=== PATIENT | female | born 1990 | race American Indian/Alaskan Native ===

== ENCOUNTER 2017-04-20 17:23 | Inpatient (IN) | payer MEDICAID ==
--- NOTE | 2017-04-20 19:43 | Ultrasound Report ---
FINAL REPORT EXAM: US OB LIMITED HISTORY: YEMI TECHNIQUE: Limited obstetrical ultrasound transabdominal PRIORS: None. FINDINGS: Obstetrical ultrasound performed for amniotic fluid index only Deepest pocket measures 4.12 centimeters. Amniotic fluid index is within normal limits at 9.16 centimeters IMPRESSION: Amniotic fluid index within normal limits at 9.16 centimeters
[2017-04-20] MEDS ORDERED: STADOL IV PRN (20:21)
[2017-04-20] MEDS ORDERED: ePHEDrine SULFATE IV PRN (20:21)
[2017-04-20] MEDS ORDERED: PHENERGAN PO PRN (20:21)
[2017-04-20] MEDS ORDERED: BRETHINE IVP PRN (20:21)
[2017-04-20] MEDS ORDERED: MINERAL OIL PO PRN (20:21)
--- NOTE | 2017-04-20 20:35 | History and Physical Report ---
History of Present Illness Date of examination: 04/20/17 Date of admission: 04/20/17 17:23 History of present illness: Patient seen in [facility] with c/o intermitently leaking fluid. Patient w/o pooling but positive for ferning. Patient is GBS positive US in L&D had YEMI >9. Will admit start abx prophylaxis and induction Menstrual History Regularity: regular Menses every: 28 days Duration: 5 LMP: 07/31/2016 LMP reliability: definite LMP character: normal test type: urine test Date: 12/11/2016 BC at conception: none Planned ? no EDC Calculations LMP: 05/07/2017 EDC Confirmation: 05/07/2017 Past History : 2 Term Births: 0 Premature Births: 0 Living Children: 0 Para: 0 Mult. Births: 0 Prev : 0 Prev. attempt? 0 Aborta: 1 Elect. Ab: 1 Spont. Ab: 0 Ectopics: 0 # 1 Delivery date: 2009 Delivery type: EAB Past Medical History: G E R D Past Surgical History: D&C: (2009) EAB Family History Summary: Other family member - Has No Family History of Ovarvian Cancer - Entered On: 12/11 Other family member - Has No Family History of Colon Cancer - Entered On: 2016 Other family member - Has No Family History of Breast Cancer - Entered On: 2016 Other family member - Has Family History of Diabetes - Entered On: 12/11/2016 Other family member - Has Family History of CVA or Stroke - Entered On: 12/11/2016 Social History: Patient is single Risk Factors: Smoked Tobacco Use: Never smoker Drug use: yes Substance: marijuana Comments: Rarely Alcohol use: yes Drinks per day: social Past Medical History 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 of genital herpes: no Partner hx. of genital herpes: no Genetic History Congenital Heart Defect: Mom: no Dad: no Ondina Disease: Mom: no Dad: no Thalassemia Mom: no Dad: no Neural Tube Defect Mom: no Dad: no Down's Syndrome Mom: no Dad: no Rodger-Sachs Mom: no Dad: no Sickle Cell Disease/Trait Mom: no Dad: no Hemophilia Mom: no Dad: no Muscular Dystrophy Mom: no Dad: no Cystic Fibrosis Mom: no Dad: no Luna Chorea Mom: no Dad: no Mental Retardation Mom: no Dad: no Fragile X Mom: no Dad: no Other Genetic/Chromosomal Disorder Mom: no Dad: no Child w/other defect Mom: no Dad: no Enviromental Exposures Xray Exposure: no Medication, drug, or alcohol use since LMP: no Chemical/Other Exposure: no Exposure to Cat Liter: no Hx of Parvovirus (Fifth Disease): no Current Allergies (reviewed today): No known allergies Past History Past Medical History: other (See HPI) Past Surgical History: other (See HPI) 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) Family/Genetic History: other (See HPI) Social history: other (See HPI) - Obstetrical History Expected Date of Delivery: 05/07/17 Actual Gestation: 37 Week(s) 5 Day(s) : 2 Para: 0 Hx # Term Pregnancies: 0 Number of Pregnancies: 0 Spontaneous Abortions: 0 Induced : 1 Number of Living Children: 0 Medications and Allergies Allergies Allergy/AdvReac Type Severity Reaction Status Date / Time No Known Allergies Allergy Unverified 04/20/17 18:44 Home Medications Medication Instructions Recorded Confirmed Last Taken Type No Known Home Medications [No 04/21/17 04/21/17 Unknown History Reported Home Medications] Active Meds: Active Medications Butorphanol Tartrate (Stadol) 2 mg IV Q2H PRN PRN Reason: Pain , Severe (7-10) Ephedrine Sulfate (Ephedrine Sulfate) 10 mg IV Q2M PRN PRN Reason: Hypotension Ampicillin Sodium (Polycillin/Ns 1 Gm/50 Ml) 1 gm in 50 mls @ 100 mls/hr IV Q4HR TIFFANI PRN Reason: Protocol Lactated Ringer's (Lactated Ringers) 1,000 mls @ 125 mls/hr IV DIRECT TIFFANI Oxytocin/Sodium Chloride (Pitocin/Ns 20 Unit/1000ml Drip) 20 units in 1,000 mls @ 125 mls/hr IV DIRECT TIFFANI Mineral Oil (Mineral Oil) 30 ml PO QHS PRN PRN Reason: Constipation Promethazine HCl (Phenergan) 25 mg PO Q6H PRN PRN Reason: Nausea And Vomiting Terbutaline Sulfate (Brethine) 0.25 mg IVP ONCE PRN PRN Reason: Hyperstimulation/Hypertonicity - Vital Signs Vital signs: Vital Signs Pulse BP Pulse Ox 73 117/73 99 04/20/17 18:05 04/20/17 18:05 04/20/17 18:05 Temp Pulse Resp BP Pulse Ox 98.7 F 68 16 123/78 99 04/20/17 18:15 04/20/17 19:00 04/20/17 18:15 04/20/17 18:35 04/20/17 19:00 - Physical Exam Breasts: Positive: deferred Cardiovascular: Regular rate Lungs: Positive: Normal air movement Abdomen: Positive: normal appearance, soft Vagina: Positive: normal moisture Cervix: Positive: other (per RN). Negative: lesion, discharge Uterus: Positive: enlarged Results Result Diagrams: 04/20/17 21:03 All other labs normal. Assessment and Plan - Patient Problems (1) Premature rupture of membranes Current Visit: Yes Status: Acute Qualifiers: PROM onset of labor timing: unspecified duration between rupture of membranes and onset of labor PROM gestational age: -third trimester Qualified Code(s): O42.913 - premature rupture of membranes, unspecified as to length of time between rupture and onset of labor, third trimester Plan to address problem: Will admit and augment labor per protocol after abx given. Induction with pitocin explained to patient Questions answered. (2) 37 weeks gestation of Current Visit: Yes Status: Acute (3) Group B streptococcal carriage complicating Current Visit: Yes Status: Acute Plan to address problem: Abx prophylaxis
[2017-04-20] MEDS ORDERED: PITOCin/NS 20 UNIT/1000ML DRIP 20 UNITS/1,000 ML BAG IV SCH (21:00)
[2017-04-20 21:30] LABS: Hematocrit 34.3 % (30.3-42.9); Mean Corpuscular HGB Conc 32 % (30-34); Mean Corpuscular Hemoglobin 27 pg (28-32); Mean Corpuscular Volume 84 fl (79-97); Platelet Count 294 K/mm3 (140-440); Red Blood Count 4.08 M/mm3 (3.65-5.03); Red Cell Distribution Width 17.4 % (13.2-15.2); White Blood Count 8.4 K/mm3 (4.5-11.0)
[2017-04-21] MEDS: POLYCILLIN/NS 1 GM/50 ML 1 GM/50 ML BAG IV SCH ×5 (00:30→20:15)
[2017-04-21] MEDS: LACTATED RINGERS 1,000 ML IV SCH ×6 (02:49→23:26)
[2017-04-21] MEDS ORDERED: PITOCin/NS 30 UNIT/500ML 30,000 MILLIUNITS/500 ML BAG IV ONE (06:18)
[2017-04-21] MEDS ORDERED: Fluarix Quad 2017-2018(36 MOS+ IM ONE (12:08)
--- NOTE | 2017-04-21 12:16 | Progress Note ---
<TEJA CLEMONS - Last Filed: 04/21/17 12:12> Assessment and Plan 37+5w, with leaking fluid since 04/16/17, + fern in office. No leaking noted this morning. Plan for pitocin today, if no signs of active labor will d/ c and do cervidil overnight. Dr. Ochoa consulted. Plan of care discussed with patient and s/o, questions addressed. - Patient Problems (1) 37 weeks gestation of Current Visit: Yes Status: Acute (2) Group B streptococcal carriage complicating Current Visit: Yes Status: Acute Plan to address problem: Ampicillin q4h monitor for s/s infection limit SVE (3) Premature rupture of membranes Onset Date: ~04/16/17 Current Visit: Yes Status: Acute QualifierTitle: PROM onset of labor timing: unspecified duration between rupture of membranes and onset of labor PROM gestational age: -third trimester Qualified Code(s): O42.913 - premature rupture of membranes , unspecified as to length of time between rupture and onset of labor, third trimester Subjective - Subjective Date of service: 04/21/17 Principal diagnosis: IUP @ 37+5 , PPROM 04/16 Patient reports: movement normal, no new complaints, no loss of fluid, no vaginal bleeding, no contractions Objective - Vital Signs Vital Signs: Vital Signs - 12hr 04/21/17 04/21/17 04/21/17 00:58 03:54 04:55 Temperature Pulse Rate 67 71 62 Respiratory Rate Blood Pressure 124/71 129/73 129/65 Blood Pressure [Right] 04/21/17 04/21/17 04/21/17 05:15 05:18 05:54 Temperature 98.1 F Pulse Rate 85 85 70 Respiratory 14 Rate Blood Pressure 133/63 106/63 Blood Pressure 133/63 [Right] 04/21/17 04/21/17 07:06 07:11 Temperature 98.3 F Pulse Rate 71 71 Respiratory 18 Rate Blood Pressure 117/67 Blood Pressure 117/67 [Right] - Exam Breasts: normal Cardiovascular: Regular rate Lungs: Clear to auscultation, Normal air movement Abdomen: Present: normal appearance, soft Vulva: both: normal Uterus: Present: normal FHR: auscultation normal, category 2 Uterine Contraction Monitor Mode: External Cervical Dilatation: 1 (Per RN) Uterine Contraction Frequency (min): 2-3 Uterine Contraction Pattern: Regular Uterine Tone Measurement Phase: Contraction Uterine Contraction Intensity: Mild Extremities: normal Deep Tendon Reflex Grade: Normal +2 - Labs Labs: Abnormal Labs 04/20/17 21:03 MCH 27 L RDW 17.4 H Laboratory Results - last 24 hr 04/20/17 04/20/17 21:03 21:03 WBC 8.4 RBC 4.08 Hgb 11.0 Hct 34.3 MCV 84 MCH 27 L MCHC 32 RDW 17.4 H Plt Count 294 Blood Type A POSITIVE Antibody Screen Negative <MENDOZA OCHOA D - Last Filed: 04/21/17 13:13> Assessment and Plan Patient gives a history of ROM for 5days, no s/s infection. Serial induction explained, plan of care discussed, questions encouraged and answered, she voiced understanding and agrees with plan of care Objective - Vital Signs Vital Signs: Vital Signs - 12hr 04/21/17 04/21/17 04/21/17 03:54 04:55 05:15 Temperature 98.1 F Pulse Rate 71 62 85 Respiratory 14 Rate Blood Pressure 129/73 129/65 Blood Pressure 133/63 [Right] 04/21/17 04/21/17 04/21/17 05:18 05:54 07:06 Temperature 98.3 F Pulse Rate 85 70 71 Respiratory 18 Rate Blood Pressure 133/63 106/63 Blood Pressure 117/67 [Right] 04/21/17 07:11 Temperature Pulse Rate 71 Respiratory Rate Blood Pressure 117/67 Blood Pressure [Right] - Labs Labs: Abnormal Labs 04/20/17 21:03 MCH 27 L RDW 17.4 H Laboratory Results - last 24 hr 04/20/17 04/20/17 21:03 21:03 WBC 8.4 RBC 4.08 Hgb 11.0 Hct 34.3 MCV 84 MCH 27 L MCHC 32 RDW 17.4 H Plt Count 294 Blood Type A POSITIVE Antibody Screen Negative
[2017-04-21] MEDS ORDERED: NARCAN 2 MG/2 ML IV PRN (19:51)
--- NOTE | 2017-04-21 19:53 | Anesthesia Consultation ---
Anesthesia Consult and Med Hx Date of service: 04/21/17 - Airway Anesthetic Teeth Evaluation: Good ROM Head & Neck: Adequate Mental/Hyoid Distance: Adequate Mallampati Class: Class II Intubation Access Assessment: Probably Good - Pulmonary Exam CTA: Yes - Cardiac Exam Cardiac Exam: RRR - Pre-Operative Health Status ASA Pre-Surgery Classification: ASA2 Proposed Anesthetic Plan: Epidural, Spinal - Pulmonary Hx Asthma: No COPD: No Hx Pneumonia: No - Cardiovascular System Hx Hypertension: No - Central Nervous System Hx Seizures: No Hx Psychiatric Problems: No - Endocrine Hx Renal Disease: No Hx End Stage Renal Disease: No Hx Hypothyroidism: No Hx Hyperthyroidism: No - Hematic Hx Anemia: No Hx Sickle Cell Disease: No - Other Systems Hx Alcohol Use: No Hx Obesity: Yes - Additional Comments Anesthesia Medical History Comments: IUP
[2017-04-21] MEDS: fentaNYL-BUPIV 2 MCG/ML-0.125% 200 MCG/100 ML BAG EPIDURAL SCH (20:05)
[2017-04-21] MEDS: PITOCin/NS 30 UNIT/500ML 30 UNITS/500 ML BAG IV SCH (21:16)
--- NOTE | 2017-04-21 21:20 | Progress Note ---
Assessment and Plan Patient began hurting with ctx and made cervical change, decision made to continue with pitocin induction. She is comfortable with an epidural. Clear/ bloody fluid now noted from vagina. tracing reviewed cat 2 with minimal variability and subtle decels on tracing that appear to be lates. IUPC placed without difficulty and tracing well. Plan to continue titrating pitocin for adequate labor. MVUs currently around 200. Will continue to monitor closely and keep Dr. Ochoa updated. - Patient Problems (1) 37 weeks gestation of Current Visit: Yes Status: Acute (2) Group B streptococcal carriage complicating Current Visit: Yes Status: Acute Plan to address problem: Next dose of amp 0000 (3) Premature rupture of membranes Onset Date: ~04/16/17 Current Visit: Yes Status: Acute Qualifiers: PROM onset of labor timing: unspecified duration between rupture of membranes and onset of labor PROM gestational age: -third trimester Qualified Code(s): O42.913 - premature rupture of membranes, unspecified as to length of time between rupture and onset of labor, third trimester Subjective - Subjective Date of service: 04/21/17 Principal diagnosis: IUP @ 37+5 , PPROM 04/16 Patient reports: new complaints (Comfortable with epidural), movement normal, no loss of fluid, no vaginal bleeding, no contractions Objective - Vital Signs Vital Signs: Vital Signs - 12hr 04/21/17 04/21/17 04/21/17 15:05 15:10 16:10 Temperature 98.9 F Pulse Rate 68 68 68 Respiratory 18 Rate Blood Pressure 135/72 Blood Pressure 135/72 [Right] O2 Sat by Pulse 94 Oximetry 04/21/17 04/21/17 04/21/17 16:11 16:15 16:18 Temperature Pulse Rate 70 66 68 Respiratory Rate Blood Pressure Blood Pressure [Right] O2 Sat by Pulse 94 95 94 Oximetry 04/21/17 04/21/17 04/21/17 16:20 16:25 16:32 Temperature Pulse Rate 70 69 Respiratory Rate Blood Pressure Blood Pressure [Right] O2 Sat by Pulse 97 96 97 Oximetry 04/21/17 04/21/17 04/21/17 16:33 16:35 16:37 Temperature Pulse Rate 63 76 73 Respiratory Rate Blood Pressure 120/77 Blood Pressure [Right] O2 Sat by Pulse 91 95 Oximetry 12/04/21/17 04/21/17 16:42 16:47 16:52 Temperature Pulse Rate 67 68 62 Respiratory Rate Blood Pressure Blood Pressure [Right] O2 Sat by Pulse 97 96 97 Oximetry 04/21/17 04/21/17 04/21/17 16:54 16:55 16:57 Temperature Pulse Rate 65 61 73 Respiratory Rate Blood Pressure 116/57 Blood Pressure [Right] O2 Sat by Pulse 93 91 Oximetry 04/21/17 04/21/17 04/21/17 17:02 17:07 17:12 Temperature Pulse Rate 67 63 65 Respiratory Rate Blood Pressure Blood Pressure [Right] O2 Sat by Pulse 91 92 95 Oximetry 04/21/17 04/21/17 04/21/17 17:13 17:17 17:19 Temperature Pulse Rate 71 78 73 Respiratory Rate Blood Pressure Blood Pressure [Right] O2 Sat by Pulse 94 99 93 Oximetry 04/21/17 04/21/17 04/21/17 17:22 17:25 17:27 Temperature Pulse Rate 69 67 62 Respiratory Rate Blood Pressure Blood Pressure [Right] O2 Sat by Pulse 99 94 92 Oximetry 04/21/17 04/21/17 04/21/17 17:31 17:32 17:37 Temperature Pulse Rate 78 75 64 Respiratory Rate Blood Pressure Blood Pressure [Right] O2 Sat by Pulse 94 93 91 Oximetry 04/21/17 04/21/17 04/21/17 17:42 17:47 17:52 Temperature Pulse Rate 63 65 69 Respiratory Rate Blood Pressure Blood Pressure [Right] O2 Sat by Pulse 93 89 90 Oximetry 04/21/17 04/21/17 04/21/17 17:54 17:58 18:03 Temperature Pulse Rate 78 64 Respiratory Rate Blood Pressure Blood Pressure [Right] O2 Sat by Pulse 93 99 96 Oximetry 04/21/17 04/21/17 04/21/17 18:08 18:13 18:18 Temperature Pulse Rate 68 70 69 Respiratory Rate Blood Pressure Blood Pressure [Right] O2 Sat by Pulse 98 97 97 Oximetry 04/21/17 04/21/17 04/21/17 18:23 18:28 18:33 Temperature Pulse Rate 71 75 73 Respiratory Rate Blood Pressure Blood Pressure [Right] O2 Sat by Pulse 98 97 99 Oximetry 04/21/17 04/21/17 04/21/17 18:38 18:43 18:48 Temperature Pulse Rate 73 69 68 Respiratory Rate Blood Pressure Blood Pressure [Right] O2 Sat by Pulse 98 98 98 Oximetry 04/21/17 04/21/17 04/21/17 18:53 18:54 18:58 Temperature Pulse Rate 82 83 73 Respiratory Rate Blood Pressure 134/86 Blood Pressure [Right] O2 Sat by Pulse 99 98 Oximetry 04/21/17 04/21/17 04/21/17 19:03 19:08 19:13 Temperature Pulse Rate 88 85 61 Respiratory Rate Blood Pressure Blood Pressure [Right] O2 Sat by Pulse 99 98 99 Oximetry 04/21/17 04/21/17 04/21/17 19:18 19:21 19:23 Temperature Pulse Rate 70 76 79 Respiratory Rate Blood Pressure 132/85 Blood Pressure [Right] O2 Sat by Pulse 99 98 Oximetry 04/21/17 04/21/17 04/21/17 19:25 19:27 19:28 Temperature Pulse Rate 76 73 71 Respiratory Rate Blood Pressure 121/74 125/82 Blood Pressure [Right] O2 Sat by Pulse 96 Oximetry 04/21/17 04/21/17 04/21/17 19:29 19:31 19:33 Temperature Pulse Rate 76 86 Respiratory Rate Blood Pressure 122/83 126/83 129/73 Blood Pressure [Right] O2 Sat by Pulse 98 Oximetry 04/21/17 04/21/17 04/21/17 19:35 19:37 19:38 Temperature Pulse Rate 77 75 65 Respiratory Rate Blood Pressure 118/68 121/63 Blood Pressure [Right] O2 Sat by Pulse 99 Oximetry 04/21/17 04/21/17 04/21/17 19:39 19:41 19:43 Temperature Pulse Rate 72 79 72 Respiratory Rate Blood Pressure 128/72 123/72 127/77 Blood Pressure [Right] O2 Sat by Pulse 98 Oximetry 04/21/17 04/21/17 04/21/17 19:45 19:47 19:48 Temperature Pulse Rate 81 73 74 Respiratory Rate Blood Pressure 113/68 119/68 Blood Pressure [Right] O2 Sat by Pulse 98 Oximetry 04/21/17 04/21/17 04/21/17 19:49 19:51 19:53 Temperature Pulse Rate 72 63 78 Respiratory Rate Blood Pressure 120/69 129/71 123/70 Blood Pressure [Right] O2 Sat by Pulse 98 Oximetry 04/21/17 04/21/17 04/21/17 19:55 19:57 19:58 Temperature Pulse Rate 83 81 70 Respiratory Rate Blood Pressure 117/68 109/67 Blood Pressure [Right] O2 Sat by Pulse 98 Oximetry 04/21/17 04/21/17 04/21/17 19:59 20:01 20:03 Temperature Pulse Rate 70 77 65 Respiratory Rate Blood Pressure 117/68 122/70 131/76 Blood Pressure [Right] O2 Sat by Pulse 99 Oximetry 04/21/17 04/21/17 04/21/17 20:04 20:05 20:07 Temperature 98.1 F Pulse Rate 62 61 67 Respiratory 18 Rate Blood Pressure 125/74 118/60 Blood Pressure 118/60 [Right] O2 Sat by Pulse 97 Oximetry 04/21/17 04/21/17 04/21/17 20:08 20:09 20:11 Temperature Pulse Rate 71 65 71 Respiratory Rate Blood Pressure 120/63 120/68 Blood Pressure [Right] O2 Sat by Pulse 98 Oximetry 04/21/17 04/21/17 04/21/17 20:13 20:15 20:17 Temperature Pulse Rate 68 71 73 Respiratory Rate Blood Pressure 124/70 130/76 132/75 Blood Pressure [Right] O2 Sat by Pulse 98 Oximetry 04/21/17 04/21/17 04/21/17 20:18 20:23 20:28 Temperature Pulse Rate 67 65 66 Respiratory Rate Blood Pressure Blood Pressure [Right] O2 Sat by Pulse 99 99 99 Oximetry 04/21/17 04/21/17 04/21/17 20:33 20:38 20:43 Temperature Pulse Rate 69 63 66 Respiratory Rate Blood Pressure 120/67 Blood Pressure [Right] O2 Sat by Pulse 99 98 99 Oximetry 04/21/17 04/21/17 04/21/17 20:48 20:53 20:58 Temperature Pulse Rate 61 68 66 Respiratory Rate Blood Pressure 126/69 Blood Pressure [Right] O2 Sat by Pulse 99 98 98 Oximetry 04/21/17 04/21/17 04/21/17 21:03 21:08 21:11 Temperature Pulse Rate 70 72 74 Respiratory Rate Blood Pressure 109/64 Blood Pressure [Right] O2 Sat by Pulse 99 97 94 Oximetry 04/21/17 21:13 Temperature Pulse Rate 69 Respiratory Rate Blood Pressure Blood Pressure [Right] O2 Sat by Pulse 97 Oximetry - Exam Breasts: normal Cardiovascular: Regular rate Lungs: Clear to auscultation, Normal air movement Abdomen: Present: normal appearance, soft Vulva: both: normal Uterus: Present: normal FHR: category 2 Uterine Contraction Monitor Mode: Internal Cervical Dilatation: 4 Cervical Effacement Percentage: 70 station: -1 Uterine Contraction Frequency (min): 2-3 Uterine Contraction Duration: 60-80 Uterine Contraction Pattern: Regular Uterine Tone Measurement Phase: Contraction Uterine Contraction Intensity: Moderate Extremities: normal Deep Tendon Reflex Grade: Normal +2 - Labs Labs: Abnormal Labs 04/20/17 21:03 MCH 27 L RDW 17.4 H Laboratory Results - last 24 hr 04/20/17 04/20/17 04/20/17 21:03 21:03 21:03 WBC 8.4 RBC 4.08 Hgb 11.0 Hct 34.3 MCV 84 MCH 27 L MCHC 32 RDW 17.4 H Plt Count 294 RPR Nonreactive Blood Type A POSITIVE Antibody Screen Negative
[2017-04-22] MEDS: POLYCILLIN/NS 1 GM/50 ML 1 GM/50 ML BAG IV SCH (00:26)
[2017-04-22] MEDS: PITOCin/NS 30 UNIT/500ML 30 UNITS/500 ML BAG IV SCH (00:37)
[2017-04-22] MEDS: fentaNYL-BUPIV 2 MCG/ML-0.125% 200 MCG/100 ML BAG EPIDURAL SCH (03:13)
--- NOTE | 2017-04-22 05:27 | Progress Note ---
<TEJA CLEMONS - Last Filed: 04/22/17 05:24> Assessment and Plan patient making very slow change throughout the night but she desired to continue with IOL, now fht with prolonged decels and tachycardia with minimal variability. Dr. Ochoa consulted and decision made to proceed with operative delivery. Plan of care discussed with patient, all questions addressed. - Patient Problems (1) 37 weeks gestation of Current Visit: Yes Status: Acute (2) Group B streptococcal carriage complicating Current Visit: Yes Status: Acute (3) Premature rupture of membranes Onset Date: ~04/16/17 Current Visit: Yes Status: Acute QualifierTitle: PROM onset of labor timing: unspecified duration between rupture of membranes and onset of labor PROM gestational age: -third trimester Qualified Code(s): O42.913 - premature rupture of membranes , unspecified as to length of time between rupture and onset of labor, third trimester Subjective - Subjective Date of service: 04/22/17 Principal diagnosis: IUP @ 37+6 , PPROM 04/16 Patient reports: new complaints (Comfortable with epidural), no loss of fluid, no vaginal bleeding, no contractions Objective - Vital Signs Vital Signs: Vital Signs - 12hr 04/21/17 04/21/17 04/21/17 17:27 17:31 17:32 Temperature Pulse Rate 62 78 75 Respiratory Rate Blood Pressure Blood Pressure [Right] O2 Sat by Pulse 92 94 93 Oximetry 04/21/17 04/21/17 04/21/17 17:37 17:42 17:47 Temperature Pulse Rate 64 63 65 Respiratory Rate Blood Pressure Blood Pressure [Right] O2 Sat by Pulse 91 93 89 Oximetry 04/21/17 04/21/17 04/21/17 17:52 17:54 17:58 Temperature Pulse Rate 69 78 Respiratory Rate Blood Pressure Blood Pressure [Right] O2 Sat by Pulse 90 93 99 Oximetry 04/21/17 04/21/17 04/21/17 18:03 18:08 18:13 Temperature Pulse Rate 64 68 70 Respiratory Rate Blood Pressure Blood Pressure [Right] O2 Sat by Pulse 96 98 97 Oximetry 04/21/17 04/21/17 04/21/17 18:18 18:23 18:28 Temperature Pulse Rate 69 71 75 Respiratory Rate Blood Pressure Blood Pressure [Right] O2 Sat by Pulse 97 98 97 Oximetry 04/21/17 04/21/17 04/21/17 18:33 18:38 18:43 Temperature Pulse Rate 73 73 69 Respiratory Rate Blood Pressure Blood Pressure [Right] O2 Sat by Pulse 99 98 98 Oximetry 04/21/17 04/21/17 04/21/17 18:48 18:53 18:54 Temperature Pulse Rate 68 82 83 Respiratory Rate Blood Pressure 134/86 Blood Pressure [Right] O2 Sat by Pulse 98 99 Oximetry 04/21/17 04/21/17 04/21/17 18:58 19:03 19:08 Temperature Pulse Rate 73 88 85 Respiratory Rate Blood Pressure Blood Pressure [Right] O2 Sat by Pulse 98 99 98 Oximetry 04/21/17 04/21/17 04/21/17 19:13 19:18 19:21 Temperature Pulse Rate 61 70 76 Respiratory Rate Blood Pressure 132/85 Blood Pressure [Right] O2 Sat by Pulse 99 99 Oximetry 04/21/17 04/21/17 04/21/17 19:23 19:25 19:27 Temperature Pulse Rate 79 76 73 Respiratory Rate Blood Pressure 121/74 125/82 Blood Pressure [Right] O2 Sat by Pulse 98 Oximetry 04/21/17 04/21/17 04/21/17 19:28 19:29 19:31 Temperature Pulse Rate 71 76 Respiratory Rate Blood Pressure 122/83 126/83 Blood Pressure [Right] O2 Sat by Pulse 96 Oximetry 04/21/17 04/21/17 04/21/17 19:33 19:35 19:37 Temperature Pulse Rate 86 77 75 Respiratory Rate Blood Pressure 129/73 118/68 121/63 Blood Pressure [Right] O2 Sat by Pulse 98 Oximetry 04/21/17 04/21/17 04/21/17 19:38 19:39 19:41 Temperature Pulse Rate 65 72 79 Respiratory Rate Blood Pressure 128/72 123/72 Blood Pressure [Right] O2 Sat by Pulse 99 Oximetry 04/21/17 04/21/17 04/21/17 19:43 19:45 19:47 Temperature Pulse Rate 72 81 73 Respiratory Rate Blood Pressure 127/77 113/68 119/68 Blood Pressure [Right] O2 Sat by Pulse 98 Oximetry 04/21/17 04/21/17 04/21/17 19:48 19:49 19:51 Temperature Pulse Rate 74 72 63 Respiratory Rate Blood Pressure 120/69 129/71 Blood Pressure [Right] O2 Sat by Pulse 98 Oximetry 04/21/17 04/21/17 04/21/17 19:53 19:55 19:57 Temperature Pulse Rate 78 83 81 Respiratory Rate Blood Pressure 123/70 117/68 109/67 Blood Pressure [Right] O2 Sat by Pulse 98 Oximetry 04/21/17 04/21/17 04/21/17 19:58 19:59 20:01 Temperature Pulse Rate 70 70 77 Respiratory Rate Blood Pressure 117/68 122/70 Blood Pressure [Right] O2 Sat by Pulse 98 Oximetry 04/21/17 04/21/17 04/21/17 20:03 20:04 20:05 Temperature 98.1 F Pulse Rate 65 62 61 Respiratory 18 Rate Blood Pressure 131/76 125/74 Blood Pressure 118/60 [Right] O2 Sat by Pulse 99 97 Oximetry 04/21/17 04/21/17 04/21/17 20:07 20:08 20:09 Temperature Pulse Rate 67 71 65 Respiratory Rate Blood Pressure 118/60 120/63 Blood Pressure [Right] O2 Sat by Pulse 98 Oximetry 04/21/17 04/21/17 04/21/17 20:11 20:13 20:15 Temperature Pulse Rate 71 68 71 Respiratory Rate Blood Pressure 120/68 124/70 130/76 Blood Pressure [Right] O2 Sat by Pulse 98 Oximetry 04/21/17 04/21/17 04/21/17 20:17 20:18 20:23 Temperature Pulse Rate 73 67 65 Respiratory Rate Blood Pressure 132/75 Blood Pressure [Right] O2 Sat by Pulse 99 99 Oximetry 04/21/17 04/21/17 04/21/17 20:28 20:33 20:38 Temperature Pulse Rate 66 69 63 Respiratory Rate Blood Pressure 120/67 Blood Pressure [Right] O2 Sat by Pulse 99 99 98 Oximetry 04/21/17 04/21/17 04/21/17 20:43 20:48 20:53 Temperature Pulse Rate 66 61 68 Respiratory Rate Blood Pressure 126/69 Blood Pressure [Right] O2 Sat by Pulse 99 99 98 Oximetry 04/21/17 04/21/17 04/21/17 20:58 21:03 21:08 Temperature Pulse Rate 66 70 72 Respiratory Rate Blood Pressure 109/64 Blood Pressure [Right] O2 Sat by Pulse 98 99 97 Oximetry 04/21/17 04/21/17 04/21/17 21:11 21:13 21:18 Temperature Pulse Rate 74 69 67 Respiratory Rate Blood Pressure 122/71 Blood Pressure [Right] O2 Sat by Pulse 94 97 98 Oximetry 04/21/17 04/21/17 04/21/17 21:23 21:28 21:33 Temperature Pulse Rate 63 64 64 Respiratory Rate Blood Pressure Blood Pressure [Right] O2 Sat by Pulse 97 97 97 Oximetry 04/21/17 04/21/17 04/21/17 21:35 21:38 21:43 Temperature Pulse Rate 66 65 64 Respiratory Rate Blood Pressure 121/62 Blood Pressure [Right] O2 Sat by Pulse 96 97 Oximetry 04/21/17 04/21/17 04/21/17 21:48 21:50 21:53 Temperature Pulse Rate 66 66 67 Respiratory Rate Blood Pressure 118/71 Blood Pressure [Right] O2 Sat by Pulse 97 97 Oximetry 04/21/17 04/21/17 04/21/17 21:58 22:03 22:04 Temperature Pulse Rate 70 68 68 Respiratory Rate Blood Pressure 129/72 Blood Pressure [Right] O2 Sat by Pulse 96 96 Oximetry 04/21/17 04/21/17 04/21/17 22:08 22:10 22:13 Temperature Pulse Rate 66 77 65 Respiratory Rate Blood Pressure Blood Pressure [Right] O2 Sat by Pulse 96 94 96 Oximetry 04/21/17 04/21/17 04/21/17 22:18 22:23 22:28 Temperature Pulse Rate 66 64 72 Respiratory Rate Blood Pressure 123/64 Blood Pressure [Right] O2 Sat by Pulse 97 96 95 Oximetry 04/21/17 04/21/17 04/21/17 22:33 22:35 22:36 Temperature Pulse Rate 67 80 66 Respiratory Rate Blood Pressure 184/73 124/60 Blood Pressure [Right] O2 Sat by Pulse 96 Oximetry 04/21/17 04/21/17 04/21/17 22:38 22:43 22:48 Temperature Pulse Rate 74 58 L 53 L Respiratory Rate Blood Pressure 107/55 Blood Pressure [Right] O2 Sat by Pulse 98 99 99 Oximetry 04/21/17 04/21/17 04/21/17 22:53 22:58 23:03 Temperature Pulse Rate 55 L 53 L 57 L Respiratory Rate Blood Pressure Blood Pressure [Right] O2 Sat by Pulse 99 99 99 Oximetry 04/21/17 04/21/1704/21/17 23:04 23:08 23:13 Temperature Pulse Rate 52 L 54 L 55 L Respiratory Rate Blood Pressure 111/59 Blood Pressure [Right] O2 Sat by Pulse 99 99 Oximetry 04/21/17 04/21/17 04/21/17 23:18 23:23 23:28 Temperature Pulse Rate 64 61 56 L Respiratory Rate Blood Pressure 114/60 Blood Pressure [Right] O2 Sat by Pulse 99 100 100 Oximetry 04/21/17 04/21/17 04/21/17 23:33 23:38 23:43 Temperature Pulse Rate 52 L 51 L 52 L Respiratory Rate Blood Pressure 115/61 Blood Pressure [Right] O2 Sat by Pulse 99 99 99 Oximetry 04/21/17 04/21/17 04/21/17 23:48 23:53 23:58 Temperature Pulse Rate 68 61 62 Respiratory Rate Blood Pressure 115/69 Blood Pressure [Right] O2 Sat by Pulse 100 100 99 Oximetry 04/22/17 04/22/17 04/22/17 00:03 00:05 00:08 Temperature Pulse Rate 59 L 59 L 55 L Respiratory Rate Blood Pressure 138/84 Blood Pressure [Right] O2 Sat by Pulse 100 100 Oximetry 04/22/17 04/22/17 04/22/17 00:13 00:18 00:23 Temperature Pulse Rate 57 L 57 L 55 L Respiratory Rate Blood Pressure 128/80 Blood Pressure [Right] O2 Sat by Pulse 100 100 99 Oximetry 04/22/17 04/22/17 04/22/17 00:28 00:33 00:35 Temperature Pulse Rate 57 L 53 L 54 L Respiratory Rate Blood Pressure 135/78 Blood Pressure [Right] O2 Sat by Pulse 100 100 Oximetry 04/22/17 04/22/17 04/22/17 00:38 00:39 00:43 Temperature 97.2 F L Pulse Rate 53 L 57 L Respiratory Rate Blood Pressure Blood Pressure [Right] O2 Sat by Pulse 99 99 Oximetry 04/22/17 04/22/17 04/22/17 00:48 00:49 00:53 Temperature Pulse Rate 56 L 56 L 57 L Respiratory Rate Blood Pressure 138/81 Blood Pressure [Right] O2 Sat by Pulse 99 99 Oximetry 04/22/17 04/22/17 04/22/17 00:58 01:03 01:08 Temperature Pulse Rate 71 63 64 Respiratory Rate Blood Pressure 141/90 Blood Pressure [Right] O2 Sat by Pulse 100 99 98 Oximetry 04/22/17 04/22/17 04/22/17 01:13 01:18 01:19 Temperature Pulse Rate 57 L 59 L 53 L Respiratory Rate Blood Pressure 125/76 Blood Pressure [Right] O2 Sat by Pulse 99 99 Oximetry 04/22/17 04/22/17 04/22/17 01:23 01:28 01:33 Temperature Pulse Rate 57 L 61 63 Respiratory Rate Blood Pressure Blood Pressure [Right] O2 Sat by Pulse 99 99 99 Oximetry 04/22/17 04/22/17 04/22/17 01:35 01:38 01:43 Temperature Pulse Rate 78 67 52 L Respiratory Rate Blood Pressure 132/73 Blood Pressure [Right] O2 Sat by Pulse 99 100 Oximetry 04/22/17 04/22/17 04/22/17 01:48 01:50 01:53 Temperature Pulse Rate 52 L 48 L 59 L Respiratory Rate Blood Pressure 114/57 Blood Pressure [Right] O2 Sat by Pulse 99 99 Oximetry 04/22/17 04/22/17 04/22/17 01:55 01:58 02:03 Temperature 97.6 F Pulse Rate 59 L 59 L Respiratory 20 Rate Blood Pressure Blood Pressure [Right] O2 Sat by Pulse 100 100 Oximetry 04/22/17 04/22/17 04/22/17 02:05 02:08 02:13 Temperature Pulse Rate 52 L 54 L 77 Respiratory Rate Blood Pressure 107/62 Blood Pressure [Right] O2 Sat by Pulse 100 99 Oximetry 04/22/17 04/22/17 04/22/17 02:18 02:19 02:23 Temperature Pulse Rate 63 57 L 58 L Respiratory Rate Blood Pressure 131/83 Blood Pressure [Right] O2 Sat by Pulse 100 99 Oximetry 04/22/17 04/22/17 04/22/17 02:28 02:33 02:34 Temperature Pulse Rate 54 L 57 L 57 L Respiratory Rate Blood Pressure 131/84 Blood Pressure [Right] O2 Sat by Pulse 100 100 Oximetry 04/22/17 04/22/17 04/22/17 02:38 02:43 02:48 Temperature Pulse Rate 55 L 56 L 58 L Respiratory Rate Blood Pressure Blood Pressure [Right] O2 Sat by Pulse 100 100 100 Oximetry 04/22/17 04/22/17 04/22/17 02:50 02:53 02:58 Temperature Pulse Rate 54 L 55 L 53 L Respiratory Rate Blood Pressure 152/86 Blood Pressure [Right] O2 Sat by Pulse 100 100 Oximetry 04/22/17 04/22/17 04/22/17 03:03 03:04 03:08 Temperature Pulse Rate 54 L 51 L 56 L Respiratory Rate Blood Pressure 135/79 Blood Pressure [Right] O2 Sat by Pulse 100 99 Oximetry 04/22/17 04/22/17 04/22/17 03:13 03:18 03:19 Temperature Pulse Rate 56 L 59 L 62 Respiratory Rate Blood Pressure 152/91 Blood Pressure [Right] O2 Sat by Pulse 100 100 Oximetry 04/22/17 04/22/17 04/22/17 03:21 03:23 03:28 Temperature Pulse Rate 61 55 L 57 L Respiratory Rate Blood Pressure 130/79 Blood Pressure [Right] O2 Sat by Pulse 99 99 Oximetry 04/22/17 04/22/17 04/22/17 03:29 03:33 03:38 Temperature 98.5 F Pulse Rate 62 50 L Respiratory 18 Rate Blood Pressure 134/82 Blood Pressure [Right] O2 Sat by Pulse 98 98 Oximetry 04/22/17 04/22/17 04/22/17 03:43 03:46 03:52 Temperature Pulse Rate 56 L 65 61 Respiratory Rate Blood Pressure 135/75 Blood Pressure [Right] O2 Sat by Pulse 97 93 98 Oximetry 04/22/17 04/22/17 04/22/17 03:57 04:02 04:07 Temperature Pulse Rate 74 60 75 Respiratory Rate Blood Pressure Blood Pressure [Right] O2 Sat by Pulse 98 98 98 Oximetry 04/22/17 04/22/17 04/22/17 04:08 04:12 04:17 Temperature Pulse Rate 68 71 71 Respiratory Rate Blood Pressure 130/83 Blood Pressure [Right] O2 Sat by Pulse 98 98 Oximetry 04/22/17 04/22/17 04/22/17 04:22 04:23 04:27 Temperature Pulse Rate 76 60 72 Respiratory Rate Blood Pressure 136/88 Blood Pressure [Right] O2 Sat by Pulse 99 100 Oximetry 04/22/17 04/22/17 04/22/17 04:32 04:37 04:42 Temperature Pulse Rate 66 72 71 Respiratory Rate Blood Pressure 125/75 Blood Pressure [Right] O2 Sat by Pulse 100 100 100 Oximetry 04/22/17 04/22/17 04/22/17 04:47 04:52 04:57 Temperature Pulse Rate 73 65 71 Respiratory Rate Blood Pressure 134/79 Blood Pressure [Right] O2 Sat by Pulse 99 99 98 Oximetry 04/22/17 04/22/17 04/22/17 05:02 05:07 05:16 Temperature Pulse Rate 79 77 70 Respiratory Rate Blood Pressure 128/76 Blood Pressure [Right] O2 Sat by Pulse 97 96 100 Oximetry 04/22/17 04/22/17 04/22/17 05:21 05:22 05:26 Temperature Pulse Rate 68 69 74 Respiratory Rate Blood Pressure 105/63 Blood Pressure [Right] O2 Sat by Pulse 100 99 Oximetry - Exam Breasts: normal Cardiovascular: Regular rate Lungs: Clear to auscultation, Normal air movement Abdomen: Present: normal appearance Vulva: both: normal Uterus: Present: normal FHR: category 2 Uterine Contraction Monitor Mode: Internal Cervical Dilatation: 6 Cervical Effacement Percentage: 90 station: -1 Uterine Contraction Pattern: Regular Uterine Tone Measurement Phase: Contraction Uterine Contraction Intensity: Strong/Firm Extremities: normal - Labs Labs: Abnormal Labs 04/20/17 21:03 MCH 27 L RDW 17.4 H Laboratory Results - last 24 hr 04/20/17 21:03 RPR Nonreactive <MENDOZA OCHOA D - Last Filed: 04/22/17 06:06> Assessment and Plan . Had minimal change yesterday however declined c/s, requesting continuing KEITH with pitocin. Overall reassuring and the decision was made to continue KEITH. Now with no cervical change she desires to proceed with c/s. Risks for continue KEITH vs c/s explained, questions answered she voiced understanding and desires to proceed with c/s Objective - Vital Signs Vital Signs: Vital Signs - 12hr 04/21/17 04/21/17 04/21/17 18:03 18:08 18:13 Temperature Pulse Rate 64 68 70 Respiratory Rate Blood Pressure Blood Pressure [Right] O2 Sat by Pulse 96 98 97 Oximetry 04/21/17 04/21/17 04/21/17 18:18 18:23 18:28 Temperature Pulse Rate 69 71 75 Respiratory Rate Blood Pressure Blood Pressure [Right] O2 Sat by Pulse 97 98 97 Oximetry 04/21/17 04/21/17 04/21/17 18:33 18:38 18:43 Temperature Pulse Rate 73 73 69 Respiratory Rate Blood Pressure Blood Pressure [Right] O2 Sat by Pulse 99 98 98 Oximetry 04/21/17 04/21/17 04/21/17 18:48 18:53 18:54 Temperature Pulse Rate 68 82 83 Respiratory Rate Blood Pressure 134/86 Blood Pressure [Right] O2 Sat by Pulse 98 99 Oximetry 04/21/17 04/21/17 04/21/17 18:58 19:03 19:08 Temperature Pulse Rate 73 88 85 Respiratory Rate Blood Pressure Blood Pressure [Right] O2 Sat by Pulse 98 99 98 Oximetry 04/21/17 04/21/17 04/21/17 19:13 19:18 19:21 Temperature Pulse Rate 61 70 76 Respiratory Rate Blood Pressure 132/85 Blood Pressure [Right] O2 Sat by Pulse 99 99 Oximetry 04/21/17 04/21/17 04/21/17 19:23 19:25 19:27 Temperature Pulse Rate 79 76 73 Respiratory Rate Blood Pressure 121/74 125/82 Blood Pressure [Right] O2 Sat by Pulse 98 Oximetry 04/21/17 04/21/17 04/21/17 19:28 19:29 19:31 Temperature Pulse Rate 71 76 Respiratory Rate Blood Pressure 122/83 126/83 Blood Pressure [Right] O2 Sat by Pulse 96 Oximetry 04/21/17 04/21/17 04/21/17 19:33 19:35 19:37 Temperature Pulse Rate 86 77 75 Respiratory Rate Blood Pressure 129/73 118/68 121/63 Blood Pressure [Right] O2 Sat by Pulse 98 Oximetry 04/21/17 04/21/17 04/21/17 19:38 19:39 19:41 Temperature Pulse Rate 65 72 79 Respiratory Rate Blood Pressure 128/72 123/72 Blood Pressure [Right] O2 Sat by Pulse 99 Oximetry 04/21/17 04/21/17 04/21/17 19:43 19:45 19:47 Temperature Pulse Rate 72 81 73 Respiratory Rate Blood Pressure 127/77 113/68 119/68 Blood Pressure [Right] O2 Sat by Pulse 98 Oximetry 04/21/17 04/21/17 04/21/17 19:48 19:49 19:51 Temperature Pulse Rate 74 72 63 Respiratory Rate Blood Pressure 120/69 129/71 Blood Pressure [Right] O2 Sat by Pulse 98 Oximetry 04/21/17 04/21/17 04/21/17 19:53 19:55 19:57 Temperature Pulse Rate 78 83 81 Respiratory Rate Blood Pressure 123/70 117/68 109/67 Blood Pressure [Right] O2 Sat by Pulse 98 Oximetry 04/21/17 04/21/17 04/21/17 19:58 19:59 20:01 Temperature Pulse Rate 70 70 77 Respiratory Rate Blood Pressure 117/68 122/70 Blood Pressure [Right] O2 Sat by Pulse 98 Oximetry 04/21/17 04/21/17 04/21/17 20:03 20:04 20:05 Temperature 98.1 F Pulse Rate 65 62 61 Respiratory 18 Rate Blood Pressure 131/76 125/74 Blood Pressure 118/60 [Right] O2 Sat by Pulse 99 97 Oximetry 04/21/17 04/21/17 04/21/17 20:07 20:08 20:09 Temperature Pulse Rate 67 71 65 Respiratory Rate Blood Pressure 118/60 120/63 Blood Pressure [Right] O2 Sat by Pulse 98 Oximetry 04/21/17 04/21/17 04/21/17 20:11 20:13 20:15 Temperature Pulse Rate 71 68 71 Respiratory Rate Blood Pressure 120/68 124/70 130/76 Blood Pressure [Right] O2 Sat by Pulse 98 Oximetry 04/21/17 04/21/17 04/21/17 20:17 20:18 20:23 Temperature Pulse Rate 73 67 65 Respiratory Rate Blood Pressure 132/75 Blood Pressure [Right] O2 Sat by Pulse 99 99 Oximetry 04/21/17 04/21/17 04/21/17 20:28 20:33 20:38 Temperature Pulse Rate 66 69 63 Respiratory Rate Blood Pressure 120/67 Blood Pressure [Right] O2 Sat by Pulse 99 99 98 Oximetry 04/21/17 04/21/17 04/21/17 20:43 20:48 20:53 Temperature Pulse Rate 66 61 68 Respiratory Rate Blood Pressure 126/69 Blood Pressure [Right] O2 Sat by Pulse 99 99 98 Oximetry 04/21/17 04/21/17 04/21/17 20:58 21:03 21:08 Temperature Pulse Rate 66 70 72 Respiratory Rate Blood Pressure 109/64 Blood Pressure [Right] O2 Sat by Pulse 98 99 97 Oximetry 04/21/17 04/21/17 04/21/17 21:11 21:13 21:18 Temperature Pulse Rate 74 69 67 Respiratory Rate Blood Pressure 122/71 Blood Pressure [Right] O2 Sat by Pulse 94 97 98 Oximetry 04/21/17 04/21/17 04/21/17 21:23 21:28 21:33 Temperature Pulse Rate 63 64 64 Respiratory Rate Blood Pressure Blood Pressure [Right] O2 Sat by Pulse 97 97 97 Oximetry 04/21/17 04/21/17 04/21/17 21:35 21:38 21:43 Temperature Pulse Rate 66 65 64 Respiratory Rate Blood Pressure 121/62 Blood Pressure [Right] O2 Sat by Pulse 96 97 Oximetry 04/21/17 04/21/17 04/21/17 21:48 21:50 21:53 Temperature Pulse Rate 66 66 67 Respiratory Rate Blood Pressure 118/71 Blood Pressure [Right] O2 Sat by Pulse 97 97 Oximetry 04/21/17 04/21/17 04/21/17 21:58 22:03 22:04 Temperature Pulse Rate 70 68 68 Respiratory Rate Blood Pressure 129/72 Blood Pressure [Right] O2 Sat by Pulse 96 96 Oximetry 04/21/17 04/21/17 04/21/17 22:08 22:10 22:13 Temperature Pulse Rate 66 77 65 Respiratory Rate Blood Pressure Blood Pressure [Right] O2 Sat by Pulse 96 94 96 Oximetry 04/21/17 04/21/17 04/21/17 22:18 22:23 22:28 Temperature Pulse Rate 66 64 72 Respiratory Rate Blood Pressure 123/64 Blood Pressure [Right] O2 Sat by Pulse 97 96 95 Oximetry 04/21/17 04/21/17 04/21/17 22:33 22:35 22:36 Temperature Pulse Rate 67 80 66 Respiratory Rate Blood Pressure 184/73 124/60 Blood Pressure [Right] O2 Sat by Pulse 96 Oximetry 04/21/17 04/21/17 04/21/17 22:38 22:43 22:48 Temperature Pulse Rate 74 58 L 53 L Respiratory Rate Blood Pressure 107/55 Blood Pressure [Right] O2 Sat by Pulse 98 99 99 Oximetry 04/21/17 04/21/17 04/21/17 22:53 22:58 23:03 Temperature Pulse Rate 55 L 53 L 57 L Respiratory Rate Blood Pressure Blood Pressure [Right] O2 Sat by Pulse 99 99 99 Oximetry 04/21/17 04/21/17 04/21/17 23:04 23:08 23:13 Temperature Pulse Rate 52 L 54 L 55 L Respiratory Rate Blood Pressure 111/59 Blood Pressure [Right] O2 Sat by Pulse 99 99 Oximetry 04/21/17 04/21/17 04/21/17 23:18 23:23 23:28 Temperature Pulse Rate 64 61 56 L Respiratory Rate Blood Pressure 114/60 Blood Pressure [Right] O2 Sat by Pulse 99 100 100 Oximetry 04/21/17 04/21/17 04/21/17 23:33 23:38 23:43 Temperature Pulse Rate 52 L 51 L 52 L Respiratory Rate Blood Pressure 115/61 Blood Pressure [Right] O2 Sat by Pulse 99 99 99 Oximetry 04/21/17 04/21/17 04/21/17 23:48 23:53 23:58 Temperature Pulse Rate 68 61 62 Respiratory Rate Blood Pressure 115/69 Blood Pressure [Right] O2 Sat by Pulse 100 100 99 Oximetry 04/22/17 04/22/17 04/22/17 00:03 00:05 00:08 Temperature Pulse Rate 59 L 59 L 55 L Respiratory Rate Blood Pressure 138/84 Blood Pressure [Right] O2 Sat by Pulse 100 100 Oximetry 04/22/17 04/22/17 04/22/17 00:13 00:18 00:23 Temperature Pulse Rate 57 L 57 L 55 L Respiratory Rate Blood Pressure 128/80 Blood Pressure [Right] O2 Sat by Pulse 100 100 99 Oximetry 04/22/17 04/22/17 04/22/17 00:28 00:33 00:35 Temperature Pulse Rate 57 L 53 L 54 L Respiratory Rate Blood Pressure 135/78 Blood Pressure [Right] O2 Sat by Pulse 100 100 Oximetry 04/22/17 04/22/17 04/22/17 00:38 00:39 00:43 Temperature 97.2 F L Pulse Rate 53 L 57 L Respiratory Rate Blood Pressure Blood Pressure [Right] O2 Sat by Pulse 99 99 Oximetry 04/22/17 04/22/17 04/22/17 00:48 00:49 00:53 Temperature Pulse Rate 56 L 56 L 57 L Respiratory Rate Blood Pressure 138/81 Blood Pressure [Right] O2 Sat by Pulse 99 99 Oximetry 04/22/17 04/22/17 04/22/17 00:58 01:03 01:08 Temperature Pulse Rate 71 63 64 Respiratory Rate Blood Pressure 141/90 Blood Pressure [Right] O2 Sat by Pulse 100 99 98 Oximetry 04/22/17 04/22/17 04/22/17 01:13 01:18 01:19 Temperature Pulse Rate 57 L 59 L 53 L Respiratory Rate Blood Pressure 125/76 Blood Pressure [Right] O2 Sat by Pulse 99 99 Oximetry 04/22/17 04/22/17 04/22/17 01:23 01:28 01:33 Temperature Pulse Rate 57 L 61 63 Respiratory Rate Blood Pressure Blood Pressure [Right] O2 Sat by Pulse 99 99 99 Oximetry 04/22/17 04/22/17 04/22/17 01:35 01:38 01:43 Temperature Pulse Rate 78 67 52 L Respiratory Rate Blood Pressure 132/73 Blood Pressure [Right] O2 Sat by Pulse 99 100 Oximetry 04/22/17 04/22/17 04/22/17 01:48 01:50 01:53 Temperature Pulse Rate 52 L 48 L 59 L Respiratory Rate Blood Pressure 114/57 Blood Pressure [Right] O2 Sat by Pulse 99 99 Oximetry 04/22/17 04/22/17 04/22/17 01:55 01:58 02:03 Temperature 97.6 F Pulse Rate 59 L 59 L Respiratory 20 Rate Blood Pressure Blood Pressure [Right] O2 Sat by Pulse 100 100 Oximetry 04/22/17 04/22/17 04/22/17 02:05 02:08 02:13 Temperature Pulse Rate 52 L 54 L 77 Respiratory Rate Blood Pressure 107/62 Blood Pressure [Right] O2 Sat by Pulse 100 99 Oximetry 04/22/17 04/22/17 04/22/17 02:18 02:19 02:23 Temperature Pulse Rate 63 57 L 58 L Respiratory Rate Blood Pressure 131/83 Blood Pressure [Right] O2 Sat by Pulse 100 99 Oximetry 04/22/17 04/22/17 04/22/17 02:28 02:33 02:34 Temperature Pulse Rate 54 L 57 L 57 L Respiratory Rate Blood Pressure 131/84 Blood Pressure [Right] O2 Sat by Pulse 100 100 Oximetry 04/22/17 04/22/17 04/22/17 02:38 02:43 02:48 Temperature Pulse Rate 55 L 56 L 58 L Respiratory Rate Blood Pressure Blood Pressure [Right] O2 Sat by Pulse 100 100 100 Oximetry 04/22/17 04/22/17 04/22/17 02:50 02:53 02:58 Temperature Pulse Rate 54 L 55 L 53 L Respiratory Rate Blood Pressure 152/86 Blood Pressure [Right] O2 Sat by Pulse 100 100 Oximetry 04/22/17 04/22/17 04/22/17 03:03 03:04 03:08 Temperature Pulse Rate 54 L 51 L 56 L Respiratory Rate Blood Pressure 135/79 Blood Pressure [Right] O2 Sat by Pulse 100 99 Oximetry 04/22/17 04/22/17 04/22/17 03:13 03:18 03:19 Temperature Pulse Rate 56 L 59 L 62 Respiratory Rate Blood Pressure 152/91 Blood Pressure [Right] O2 Sat by Pulse 100 100 Oximetry 04/22/17 04/22/17 04/22/17 03:21 03:23 03:28 Temperature Pulse Rate 61 55 L 57 L Respiratory Rate Blood Pressure 130/79 Blood Pressure [Right] O2 Sat by Pulse 99 99 Oximetry 04/22/17 04/22/17 04/22/17 03:29 03:33 03:38 Temperature 98.5 F Pulse Rate 62 50 L Respiratory 18 Rate Blood Pressure 134/82 Blood Pressure [Right] O2 Sat by Pulse 98 98 Oximetry 04/22/17 04/22/17 04/22/17 03:43 03:46 03:52 Temperature Pulse Rate 56 L 65 61 Respiratory Rate Blood Pressure 135/75 Blood Pressure [Right] O2 Sat by Pulse 97 93 98 Oximetry 04/22/17 04/22/17 04/22/17 03:57 04:02 04:07 Temperature Pulse Rate 74 60 75 Respiratory Rate Blood Pressure Blood Pressure [Right] O2 Sat by Pulse 98 98 98 Oximetry 04/22/17 04/22/17 04/22/17 04:08 04:12 04:17 Temperature Pulse Rate 68 71 71 Respiratory Rate Blood Pressure 130/83 Blood Pressure [Right] O2 Sat by Pulse 98 98 Oximetry 04/22/17 04/22/17 04/22/17 04:22 04:23 04:27 Temperature Pulse Rate 76 60 72 Respiratory Rate Blood Pressure 136/88 Blood Pressure [Right] O2 Sat by Pulse 99 100 Oximetry 04/22/17 04/22/17 04/22/17 04:32 04:37 04:42 Temperature Pulse Rate 66 72 71 Respiratory Rate Blood Pressure 125/75 Blood Pressure [Right] O2 Sat by Pulse 100 100 100 Oximetry 12/04/22/17 04/22/17 04:47 04:52 04:57 Temperature Pulse Rate 73 65 71 Respiratory Rate Blood Pressure 134/79 Blood Pressure [Right] O2 Sat by Pulse 99 99 98 Oximetry 04/22/17 04/22/17 04/22/17 05:02 05:07 05:16 Temperature Pulse Rate 79 77 70 Respiratory Rate Blood Pressure 128/76 Blood Pressure [Right] O2 Sat by Pulse 97 96 100 Oximetry 04/22/17 04/22/17 04/22/17 05:21 05:22 05:26 Temperature Pulse Rate 68 69 74 Respiratory Rate Blood Pressure 105/63 Blood Pressure [Right] O2 Sat by Pulse 100 99 Oximetry 04/22/17 04/22/17 04/22/17 05:31 05:36 05:37 Temperature Pulse Rate 70 73 70 Respiratory Rate Blood Pressure 114/67 Blood Pressure [Right] O2 Sat by Pulse 100 100 Oximetry 04/22/17 04/22/17 05:41 05:46 Temperature Pulse Rate 70 73 Respiratory Rate Blood Pressure Blood Pressure [Right] O2 Sat by Pulse 100 100 Oximetry - Labs Labs: Abnormal Labs 04/20/17 21:03 MCH 27 L RDW 17.4 H Laboratory Results - last 24 hr 04/20/17 21:03 RPR Nonreactive
[2017-04-22] MEDS ORDERED: REGLAN IV ONE (05:28)
[2017-04-22] MEDS ORDERED: PEPCID IV ONE ×2 (05:28→05:30)
[2017-04-22] MEDS ORDERED: BICITRA PO ONE (05:28)
[2017-04-22] MEDS ORDERED: BICITRA ONE (05:30)
[2017-04-22] MEDS ORDERED: ANCEF/STERILE WATER 2 GM/20 ML 2 GM/20 ML SYRINGE IV ONE (05:30)
[2017-04-22] MEDS ORDERED: REGLAN ONE (05:30)
[2017-04-22] MEDS ORDERED: ANCEF/STERILE WATER 2 GM/20 ML 2 GM/20 ML SYRINGE IV NR (06:00)
[2017-04-22] MEDS ORDERED: ANCEF/STERILE WATER 2 GM/20 ML IV ONE (06:15)
[2017-04-22] MEDS ORDERED: XYLOCAINE MPF 2% ONE ×3 (06:25→07:23)
[2017-04-22] MEDS ORDERED: WATER FOR IRRIG STERILE IR ONE (06:30)
[2017-04-22] MEDS ORDERED: NACL 0.9% IR ONE (06:30)
[2017-04-22] MEDS ORDERED: ZOFRAN ONE (06:32)
[2017-04-22] MEDS ORDERED: VERSED ONE (06:45)
[2017-04-22] MEDS ORDERED: DEMEROL ONE (06:50)
[2017-04-22] MEDS ORDERED: MORPHINE ONE (06:55)
--- NOTE | 2017-04-22 07:26 | Post Anesthesia Evaluation ---
- Post Anesthesia Evaluation Patient Participated: Yes Airway Patent: Yes Stable Respiratory Function: Yes Nausea/Vomiting: No Temp > 96.8F: Yes Pain Manageable: Yes Adequeate Hydration: Yes Anesthesia Complications: No Block Receding Appropriately: Yes Patient on Ventilator: No
[2017-04-22] MEDS ORDERED: BENADRYL IV PRN (07:30)
[2017-04-22] MEDS ORDERED: MORPHINE IV PRN ×4 (07:45→12:13)
[2017-04-22] MEDS ORDERED: TORADOL IV PRN (08:00)
[2017-04-22] MEDS ORDERED: ZOFRAN IV PRN ×2 (08:00→12:13)
[2017-04-22] MEDS ORDERED: SODIUM CHLORIDE FLUSH SYRINGE 10 ML IV PRN (08:00)
[2017-04-22] MEDS ORDERED: NARCAN 0.4 MG/1 ML IV PRN ×2 (08:00→12:13)
--- NOTE | 2017-04-22 08:35 | Operative Report ---
Operative Report Operative Report: Date: 04/22/2017 Preoperative diagnosis: 1. Intrauterine at 37 weeks 2. Premature prolonged rupture of membranes 3. Failure to dilate 4. Group beta Streptococcus carrier Postoperative diagnosis: 1. Intrauterine at 37 weeks 2. Premature prolonged rupture of membranes 3. Failure to dilate 4. Group beta Streptococcus carrier Procedure: Low uterine transverse incision for delivery Surgeon: Whitley Ochoa MD Principal Architect: Ella Baorne CST Anesthesia: Epidural Anesthesiologist: Nevaeh Torres M.D. Estimated blood loss: 800 mL Urine out: 200 mL Findings: Live born male . Weight 9 lbs. 0 oz. Apgars 8 at 1 minute and 9 at 9 minutes. Grossly normal uterus. tubes and ovaries. Procedure: After risk, benefits, complications, consequences and alternatives for this procedure were discussed with patient and consents were reviewed and signed, she was taken to the OR where epidural anesthesia was bolused. She was then placed in the left lateral tilt position, and prepped and draped in the usual sterile fashion. Timeout was performed, and an appropriate level of anesthesia was noted, a Pfannenstiel incision was made and extended to the fascia which was incised and extended in the lateral directions. The overlying fascia was sharply dissected away from the underlying rectus muscles in the superior and inferior directions. The midline was entered bluntly. The vesicouterine fold was incised and with blunt dissection the bladder flap was created. A transverse incision was made in the lower uterine segment and extended in superiolateral direction with finger fractionation. Clear fluid was noted. The infant was delivered from cephalic position. Mouth and nose were bulb suctioned. Spontaneous cry and excellent tone were noted. Cord was doubly clamped and cut. The was given to /resuscitation team present. The placenta was manually extracted. The uterus was then exteriorized and cleared of any further products of conception or placental tissue. The incision was reapproximated using 0 Vicryl in a running interlocking stitch. Grossly normal uterus, tubes and ovaries were noted. Once hemostasis was noted, the uterus was allowed back into the pelvic cavity. The pelvis was irrigated with warm normal saline. Again hemostasis was noted . Surgicel applied for further hemostasis. Interceed was then placed to prevent adhesions. Then attention was turned to the rectus muscles. Once hemostasis was noted, the fascia was reapproximated using 0 Vicryl and some running stitch. Once hemostasis was noted skin incision was reapproximated using 4-0 Vicryl on a Audie needle in a subcuticular manner. Counts were correct 3. Patient tolerated procedure well state recovery room in stable condition.
[2017-04-22 09:19] LABS: Hematocrit 35.9 % (30.3-42.9); Hemoglobin 11.3 gm/dl (10.1-14.3); Mean Corpuscular HGB Conc 31 % (30-34); Mean Corpuscular Hemoglobin 27 pg (28-32); Mean Corpuscular Volume 85 fl (79-97); Platelet Count 261 K/mm3 (140-440); Red Blood Count 4.24 M/mm3 (3.65-5.03); Red Cell Distribution Width 17.4 % (13.2-15.2); White Blood Count 12.8 K/mm3 (4.5-11.0)
[2017-04-22 09:37] LABS: Bacteria,Urine 1+ /HPF (Negative); Bilirubin,Urine NEG (Negative); Blood,Urine LG (Negative); Ketones,Urine TR mg/dL (Negative); Leukocyte Esterase,Urine SM (Negative); Nitrite,Urine NEG (Negative); Protein,Urine <15 mg/dL mg/dL (Negative); Urobilinogen,Urine < 2.0 mg/dL (<2.0)
[2017-04-22 09:47] LABS: Alanine Aminotransferase 87 units/L (7-56); Lactate Dehydrogenase 274 units/L (91-180); Uric Acid 5.6 mg/dL (3.5-7.6)
[2017-04-22] MEDS ORDERED: MAGNESIUM SULFATE 40GM/1000ML 40 GM/1,000 ML BAG IV SCH (10:30)
[2017-04-22] MEDS ORDERED: MAGNESIUM SULFATE 4GM/100ML 4 GM/100 ML BAG IV ONE (10:30)
[2017-04-22] MEDS ORDERED: MYLICON PO PRN (12:13)
[2017-04-22] MEDS ORDERED: PHENERGAN PR PRN (12:13)
[2017-04-22] MEDS ORDERED: MILK OF MAGNESIA PO PRN (12:13)
[2017-04-22] MEDS ORDERED: SODIUM CHLORIDE FLUSH SYRINGE 10 ML IV NR (12:13)
[2017-04-22] MEDS ORDERED: TUCKS PAD TP PRN (12:13)
[2017-04-22] MEDS ORDERED: PITOCin/NS 20 UNIT/1000ML DRIP 20 UNITS/1,000 ML BAG IV SCH (12:13)
[2017-04-22] MEDS ORDERED: TYLENOL PO PRN (12:13)
[2017-04-22] MEDS ORDERED: ANCEF/NS 1 GM/50 ML 1 GM/50 ML BAG IV SCH (12:13)
[2017-04-22] MEDS ORDERED: LANSINOH TP PRN (12:13)
[2017-04-22] MEDS: ceFAZolin 1 GM in NACL 0.9% 20 ML IV SCH (17:47)
[2017-04-22 18:55] LABS: Hematocrit 33.1 % (30.3-42.9); Hemoglobin 10.5 gm/dl (10.1-14.3)
[2017-04-22] MEDS: LACTATED RINGERS 1,000 ML IV SCH (19:37)
[2017-04-22] MEDS: TORADOL IV PRN (23:13)
[2017-04-23] MEDS: ceFAZolin 1 GM in NACL 0.9% 20 ML IV SCH (02:03)
[2017-04-23] MEDS: LACTATED RINGERS 1,000 ML IV SCH (03:52)
[2017-04-23] MEDS: TORADOL IV PRN (04:41)
[2017-04-23] MEDS ORDERED: BOOSTRIX IM ONE (06:00)
[2017-04-23] MEDS: MOTRIN PO PRN ×3 (08:19→20:37)
[2017-04-23] MEDS: PERCOCET 5/325 PO PRN ×3 (08:30→20:37)
--- NOTE | 2017-04-23 08:36 | Progress Note ---
Assessment and Plan - Patient Problems (1) S/P primary low transverse Current Visit: Yes Status: Acute Plan to address problem: -ROUTINE POST OP/PP CARE -ADAT -AMBULATION TODAY (2) Elevated LFTs Current Visit: Yes Status: Acute Plan to address problem: -MAG D/C EARLY D/T LOSING IV SITE AND PT REFUSED TO HAVE IV RESTARTED PER NURSING STAFF AND REFUSED THE MAGNESIUM. PT DOING WELL WITH NOW NORMAL BPS. WILL REPEAT LFTS AT THIS TIME. Subjective - Subjective Date of service: 04/23/17 Principal diagnosis: POD #1 s/p 1 LTCS 2)ELEVATED LFTS 3)LABILE BP Interval history: PT DOING WELL. DOES C/O PAIN AT THIS TIME AND IS WAITING FOR PAIN MEDS. + AMBULATION. +FLATUS. NO HEADACHES OR BLURRY VISION. Patient reports: appetite normal, voiding normally, pain well controlled : doing well, in NICU Objective - Vital Signs Latest vital signs: Vital Signs Temp Pulse Resp BP BP Pulse Ox 04/23/17 06:48 98.5 F 82 18 117/81 04/23/17 05:11 16 04/23/17 04:45 98.6 F 91 H 16 119/68 04/23/17 04:41 18 04/23/17 02:45 98.4 F 91 H 20 121/68 04/23/17 00:15 98.5 F 93 H 18 114/69 04/22/17 23:43 16 04/22/17 23:13 18 04/22/17 22:20 98.9 F 92 H 18 113/70 04/22/17 20:00 98.5 F 82 16 110/70 04/22/17 16:00 98.9 F 80 20 113/70 97 04/22/17 14:53 98.3 F 83 18 115/68 95 04/22/17 11:16 97.7 F 77 18 118/71 97 04/22/17 11:00 80 117/55 04/22/17 10:56 83 114/53 04/22/17 10:51 81 108/64 04/22/17 10:50 97.6 F 81 16 108/64 04/22/17 10:45 86 103/54 04/22/17 10:40 75 109/56 04/22/17 10:36 83 111/74 04/22/17 10:30 83 113/58 04/22/17 10:26 86 120/55 04/22/17 10:21 73 131/64 04/22/17 10:19 81 126/77 04/22/17 10:17 98.7 F 81 18 131/64 04/22/17 10:16 77 130/78 04/22/17 10:13 78 117/59 04/22/17 10:02 69 128/81 04/22/17 09:59 65 94 04/22/17 09:55 65 127/86 04/22/17 09:54 67 96 04/22/17 09:50 55 L 129/85 04/22/17 09:49 71 98 04/22/17 09:45 67 137/89 04/22/17 09:44 67 95 04/22/17 09:40 67 128/82 04/22/17 09:39 72 95 04/22/17 09:35 64 133/87 04/22/17 09:34 67 96 04/22/17 09:30 62 130/85 04/22/17 09:29 56 L 97 04/22/17 09:25 64 140/92 04/22/17 09:24 61 97 04/22/17 09:19 58 L 98 04/22/17 09:14 74 97 04/22/17 09:10 67 130/78 04/22/17 09:09 79 98 04/22/17 09:05 59 L 127/79 04/22/17 09:04 67 98 04/22/17 08:40 98.1 F 73 10 L 132/77 97 04/22/17 08:36 66 14 132/77 98 Intake and Output 04/22/17 04/23/17 04/23/17 22:59 06:59 14:59 Intake Total 360 1185 120 Output Total 2550 1600 800 Balance -3055 -801 -931 Intake: IV 825 Lactated Ringers 1,000 ml 825 @ 100 mls/hr IV DIRECT TIFFANI Rx#:[id number] Intake, Free Water 360 360 120 Output: Urine 2550 1600 800 Indwelling Catheter 2550 1600 800 Other: Total, Output Amount 950 800 800 - Exam Breasts: Present: normal Cardiovascular: Present: Normal S1, Normal S2 Lungs: Present: Clear to auscultation, Normal air movement Abdomen: Present: normal appearance, soft, normal bowel sounds (BUT SLIGHTLY DECREASED). Absent: distention, tenderness Uterus: Present: normal, firm, fundal height below umbilicus. Absent: bogginess , tenderness Extremities: Present: normal, edema (DEPENDENT B/L). Absent: tenderness Deep Tendon Reflex Grade: Normal +2 - Labs Labs: Abnormal lab results 04/22/17 04/22/17 04/22/17 Range/Units 08:50 08:50 08:50 WBC 12.8 H (4.5-11.0) K/mm3 MCH 27 L (28-32) pg RDW 17.4 H (13.2-15.2) % Creatinine 0.6 L (0.7-1.2) mg/dL Magnesium (1.7-2.3) mg/dL AST 108 H (5-40) units/L ALT 87 H (7-56) units/L Lactate Dehydrogenase 274 H (91-180) units/L Urine WBC (Auto) 10.0 H (0.0-6.0) /HPF 04/22/17 04/23/17 04/23/17 Range/Units 18:28 00:51 05:22 WBC (4.5-11.0) K/mm3 MCH (28-32) pg RDW (13.2-15.2) % Creatinine (0.7-1.2) mg/dL Magnesium 4.20 H 3.90 H 3.80 H (1.7-2.3) mg/dL AST (5-40) units/L ALT (7-56) units/L Lactate Dehydrogenase (91-180) units/L Urine WBC (Auto) (0.0-6.0) /HPF
[2017-04-23 09:48] LABS: Alanine Aminotransferase 63 units/L (7-56); Albumin 2.3 g/dL (3.9-5); Albumin/Globulin Ratio 0.8 %; Alkaline Phosphatase 129 units/L (35-129); Total Protein 5.2 g/dL (6.3-8.2)
[2017-04-23 09:49] LABS: Bilirubin,Direct < 0.2 mg/dL (0-0.2); Bilirubin,Indirect 0.1 mg/dL
[2017-04-23] MEDS: MORPHINE IM ONE ×2 (12:18→12:20)
[2017-04-23] MEDS ORDERED: PERCOCET 5/325 ONE (15:00)
[2017-04-24] MEDS: PERCOCET 5/325 PO PRN (04:11)
[2017-04-24] MEDS: MOTRIN PO PRN (04:11)
[2017-04-24] MEDS ORDERED: BOOSTRIX IM ONE (06:00)
--- NOTE | 2017-04-24 08:00 | Progress Note ---
Assessment and Plan Patient doing well, desires d/c home today. VSSAF, H&H stable w/o s/s anemia. Breast and bottle feeding infant. Dressing removed. advised patient needs to shower prior to being d/c'd home. Plan for routine f/u 1 week for patient and son. - Patient Problems (1) delivery delivered Current Visit: Yes Status: Acute Subjective - Subjective Date of service: 04/24/17 Principal diagnosis: POD #2 s/p 1 LTCS 2)ELEVATED LFTS Patient reports: appetite normal, voiding normally, pain well controlled, flatus , ambulating normally, no dizzy ambulation, no nauseated : doing well, bottle feeding (breast and bottle feeding ) Objective - Vital Signs Latest vital signs: Vital Signs Temp Pulse Resp BP Pulse Ox 04/24/17 04:15 98.0 F 89 20 118/68 04/24/17 00:00 98.4 F 93 H 18 125/73 04/23/17 20:15 98.2 F 98 H 18 125/77 04/23/17 16:38 98.3 F 75 18 116/73 99 04/23/17 12:07 98.3 F 82 18 116/67 95 04/23/17 08:58 97.9 F 90 18 128/79 98 Intake and Output 04/23/17 04/23/17 04/24/17 15:59 23:59 07:59 Intake Total 1200 600 240 Output Total 850 600 Balance 350 0 240 Intake: Oral 600 360 240 Intake, Free Water 600 240 Output: Urine 850 600 Void 850 600 Other: Total, Intake Amount 600 120 240 Total, Output Amount 500 600 # Voids Void 1 1 1 - Exam Breasts: Present: normal, Cardiovascular: Present: Regular rate Lungs: Present: Clear to auscultation, Normal air movement Abdomen: Present: normal appearance, soft Vulva: both: normal Uterus: Present: normal, firm, fundal height at umbilicus Extremities: Present: normal Deep Tendon Reflex Grade: Normal +2 Incision: Present: normal, dry, intact - Labs Labs: Abnormal lab results 04/23/17 Range/Units 09:01 AST 65 H (5-40) units/L ALT 63 H (7-56) units/L Total Protein 5.2 L (6.3-8.2) g/dL Albumin 2.3 L (3.9-5) g/dL
--- NOTE | 2017-04-24 08:03 | Discharge Summary ---
Providers - Providers Date of Admission: 04/20/17 17:23 Date of discharge: 04/24/17 (pt desires d/c home) Attending physician: ALY TAYLOR 04/22/17 12:13 Consult to Parking Lot Attendant And Cashier [CONS] Routine Reason For Exam: Primary care physician: ALY TAYLOR Hospitalization Reason for admission: rupture of membranes (PPROM) Delivery: Procedure: primary low transverse Incision: normal, dry, intact Other procedures: none complications: none Discharge diagnosis: IUP at term delivered baby: male Hospital course: uncomplicated c/s delivery with labial blood pressures (now resolved) and elevated LFTs (now decreasing) Condition at discharge: Good Disposition: DC-01 TO HOME OR SELFCARE - Discharge Diagnoses (1) delivery delivered Status: Acute (2) Elevated LFTs Status: Acute Plan - Discharge Medications Prescriptions: Ibuprofen [Motrin 800 MG tab] 800 mg PO TID PRN #30 tablet PRN Reason: Pain Lidocain2.5%/Prilocai2.5% [Emla] 5 gm TP ONCE #1 tube oxyCODONE /ACETAMINOPHEN [Percocet 5/325 mg] 1 - 2 tab PO Q4HR PRN #30 tablet PRN Reason: Pain - Provider Discharge Summary Activity: routine, no sex for 6 weeks, no heavy lifting 4 weeks, no strenuous exercise Diet: routine Instructions: routine Additional instructions: [] Smoking cessation referral if applicable(refer to patient education folder for contact #) [] Refer to [facility] Booklet Call your doctor immediately for: * Fever > 100.5 * Heavy vaginal bleeding ( >1 pad per hour) * Severe persistent headache * Shortness of breath * Reddened, hot, painful area to leg or breast * Drainage or odor from incision. * Keep incision clean and dry at all times and follow doctor's instructions regarding bathing/showering - Follow up plan Follow up: ALY TAYLOR MD [Primary Care Provider] - 7 Days (Congratulations! Please call [phone] to schedule your incision check and your son's circumcision in 1 week. bring EMLA cream to your son's appointment and await further teaching. Call for any questions, concerns or complaints of headache, upper abdominal pain or vision changes. )
[2017-04-24 12:51] VITALS: BP 120/82
== END 2017-04-24 12:45 | disposition home or self-care (01) | DRG 766 ==
LOC: EDBD 17:23 → APU 17:23 → LD 17:50 → OB 04-22 10:58
PROVIDERS: ADMIT Obstetrics & Gynecology; ATTEND Obstetrics & Gynecology
PROC: 3E0234Z Introduction of Serum, Toxoid and Vaccine into Muscle, Percutaneous Approach (ICD-10-PCS; 2017-04-21)
PROC: 10H07YZ Insertion of Other Device into Products of Conception, Via Natural or Artificial Opening (ICD-10-PCS; 2017-04-21)
PROC: 10D00Z1 Extraction of Products of Conception, Low, Open Approach (ICD-10-PCS; principal; 2017-04-22)
DX: O99.824 Streptococcus B carrier state complicating childbirth (principal); O42.02 Full-term premature rupture of membranes, onset of labor within 24 hours of rupture; O99.214 Obesity complicating childbirth; O62.0 Primary inadequate contractions; E66.9 Obesity, unspecified; Z3A.37 37 weeks gestation of pregnancy; Z37.0 Single live birth; Z23 Encounter for immunization; Z82.3 Family history of stroke; Z83.3 Family history of diabetes mellitus; Z72.89 Other problems related to lifestyle; Z68.37 Body mass index [BMI] 37.0-37.9, adult; O99.324 Drug use complicating childbirth; F12.90 Cannabis use, unspecified, uncomplicated
CPT/HCPCS: 36415; 76815; 80074; 81001; 82565; 82962; 83615; 83735; 84450; 84460; 84550; 85014; 85018; 85027; 86592; 86850; 86900; 86901; 90471; 90686; 90715; 99211; A6250; C1765; G0463; J0290; J0595; J0690; J1885; J2175; J2250; J2270; J2405; J2590; J2765; J3475; J7120